=== PATIENT | male | born 1975 | race African-American/Black ===

== ENCOUNTER 2022-10-04 17:05 | Inpatient (IN) | payer SELFPAY ==
[2022-10-04 17:48] LABS: #Eosinphils 0.1 10x3/uL (0.0-0.5); #Monocytes 0.4 10x3/uL (0.0-1.1); %Basophils 0.7 % (0.0-2.0); %Eosinophils 1.6 % (0.0-6.0); %Lymphocytes 21.2 % (18.0-47.0); %Monocytes 7.3 % (0.0-10.0); Hemoglobin 11.2 g/dL (13.5-17.5); Mean Corpuscular Hemoglobin 28.1 pg (27.0-33.0); Mean Platelet Volume 10.1 fl (7.4-10.4); Platelet Count 367 10x3/uL (150-450); RBC Distribution Width 13.9 % (11.5-14.5); Red Blood Cell (RBC) Count 3.99 10x6/uL (4.32-5.72); White Blood Cell (WBC) Count 5.8 10x3/uL (3.5-10.5)
[2022-10-04 18:04] LABS: ALT (SGPT) 16 U/L (8-55); AST (SGOT) 26 U/L (5-34); Albumin 3.7 g/dL (3.5-5.0); Alkaline Phosphatase 61 U/L (40-110); Anion Gap 17 mmol/L (10-20); BUN (Urea Nitrogen) 38 mg/dL (8.9-20.6); Bilirubin, Total 0.6 mg/dL (0.2-1.2); Calc. Creatinine Clearance 0 mL/min (70-130); Calcium 9.2 mg/dL (7.8-10.44); Carbon Dioxide 21 mmol/L (22-29); Chloride 101 mmol/L (98-107); Estimated GFR 19; Glucose 152 mg/dL (70-105); Protein, Total 6.7 g/dL (6.0-8.3); Sodium 135 mmol/L (136-145)
[2022-10-04 18:23] LABS: CKMB 5.4 ng/mL (0-6.6)
[2022-10-04] MEDS ORDERED: Aspirin 325 MG TAB ONE (18:35)
[2022-10-04] MEDS ORDERED: niCARdipine 25 MG/10 ML SDV ONE (18:35)
[2022-10-04] MEDS ORDERED: Furosemide 40 MG/4 ML VIAL ONE (19:28)
[2022-10-04] MEDS ORDERED: Zolpidem Tartrate 5 MG TAB PO PRN (19:51)
[2022-10-04] MEDS ORDERED: Acetaminophen 325 MG TAB PO PRN (19:51)
[2022-10-04] MEDS ORDERED: Ondansetron PF 4 MG/2 ML Vial IVP PRN (19:51)
[2022-10-04] MEDS ORDERED: Senokot S 8.6-50 MG TAB PO PRN (19:51)
[2022-10-04] MEDS ORDERED: Calcium Carbonate 500 MG ChewTAB PO PRN (19:51)
[2022-10-04] MEDS ORDERED: Guaifenesin DM 100-10/5 ML UDCUP PO PRN (19:51)
[2022-10-04] MEDS ORDERED: niCARdipine 25 MG in Sodium Chloride 0.9% 250 ML 250 ML IVPB SCH (20:00)
[2022-10-04 20:12] LABS: Troponin I 2.298 ng/mL (< 0.028)
[2022-10-04] MEDS ORDERED: Heparin 5,000 UNITS/ML VIAL SC SCH (21:00)
[2022-10-04] MEDS ORDERED: Atorvastatin Calcium 10 MG TAB PO SCH (22:15)
[2022-10-04] MEDS ORDERED: Carvedilol 12.5 MG TAB PO SCH (22:15)
[2022-10-04] MEDS ORDERED: Nitroglycerin 2% Ointment 1 INCH/1 GM Packet TOP SCH (22:15)
[2022-10-04] MEDS ORDERED: hydrALAZINE 25 MG TAB PO SCH (22:15)
[2022-10-04 23:19] LABS: Bilirubin Neg (Negative); Blood, Urine 10 (Negative); Clarity Clear (Clear); Glucose, Urine (Dipstick) Normal (Negative); Ketone, Urine Negative (Negative); Leukocyte 100 (Negative); Nitrite Negative (Negative); Protein, Urine (Dipstick) 30 mg/dl (Neg-Trace); Urobilinogen Normal mg/dL (Less than 2); pH, Urine 6.5 (5.0-9.0)
[2022-10-04 23:26] LABS: Amphetamine Not Detected (NotDetected); Barbiturates Screen Not Detected (NotDetected); Benzodiazepine Screen Not Detected (NotDetected); Cocaine Metabolite Screen Not Detected (NotDetected); Methadone Not Detected (NotDetected); Methamphetamine Not Detected (NotDetected); Opiate Screen Not Detected (NotDetected); Oxycodone Screen Not Detected (NotDetected); Phencyclidine (PCP) Not Detected (NotDetected); THC/Cannabinoid Screen Not Detected (NotDetected); Tricyclic Screen Not Detected (NotDetected)
[2022-10-04 23:27] LABS: Bacteria/HPF None Seen HPF (None Seen); RBC/HPF 0-3 HPF (0-3); Squamous Epithelial 0-3 HPF (0-3); WBC/HPF 0-3 HPF (0-3)
[2022-10-05 03:48] LABS: #Eosinphils 0.1 10x3/uL (0.0-0.5); #Monocytes 0.3 10x3/uL (0.0-1.1); #Neutrophils 3.8 10x3/uL (1.5-8.4); %Basophils 0.6 % (0.0-2.0); %Eosinophils 1.4 % (0.0-6.0); %Lymphocytes 15.2 % (18.0-47.0); %Monocytes 6.9 % (0.0-10.0); %Neutrophils 75.7 % (40.0-75.0); Hemoglobin 10.7 g/dL (13.5-17.5); Mean Corpuscular HGB CONC 33.3 g/dL (32.0-36.0); Mean Platelet Volume 9.9 fl (7.4-10.4); Platelet Count 352 10x3/uL (150-450); RBC Distribution Width 14.1 % (11.5-14.5); Red Blood Cell (RBC) Count 3.82 10x6/uL (4.32-5.72)
[2022-10-05 03:52] LABS: Anion Gap 17 mmol/L (10-20); BUN (Urea Nitrogen) 36 mg/dL (8.9-20.6); CK (CPK) 64 U/L (30-200); Calc. Creatinine Clearance 32 mL/min (70-130); Calcium 9.1 mg/dL (7.8-10.44); Carbon Dioxide 21 mmol/L (22-29); Cardiac Risk 5.1 (Less than 4.5); Chloride 102 mmol/L (98-107); Cholesterol 149 mg/dl (< 200 Desired); Estimated GFR 20; Glucose 122 mg/dL (70-105); HDL Cholesterol 29 mg/dL (>60 Neg Risk); LDL Cholesterol, Calculated 103 mg/dL; Potassium 4.1 mmol/L (3.5-5.1); Sodium 136 mmol/L (136-145); Triglycerides 83 mg/dL (Less than 150)
[2022-10-05 04:19] LABS: CKMB 3.4 ng/mL (0-6.6)
[2022-10-05] MEDS ORDERED: Carvedilol 6.25 MG TAB PO SCH (08:00)
[2022-10-05] MEDS: Aspirin 81 mg Enteric Coated Tablet PO SCH (08:17)
[2022-10-05] MEDS ORDERED: hydrALAZINE 25 MG TAB PO SCH (09:00)
[2022-10-05] MEDS ORDERED: hydrALAZINE 20 MG/ML VIAL SLOW IVP PRN (09:41)
[2022-10-05] MEDS ORDERED: Furosemide 40 MG/4 ML VIAL SLOW IVP SCH (09:45)
[2022-10-05] MEDS: Furosemide 40 MG/4 ML VIAL SLOW IVP SCH (14:23)
[2022-10-05] MEDS: hydrALAZINE 25 MG TAB PO SCH ×2 (14:26→19:57)
[2022-10-05] MEDS: Carvedilol 25 MG TAB PO SCH (17:18)
[2022-10-05] MEDS: Atorvastatin Calcium 10 MG TAB PO SCH (19:57)
[2022-10-06] MEDS: Furosemide 40 MG/4 ML VIAL SLOW IVP SCH ×2 (05:16→14:09)
[2022-10-06 06:42] LABS: #Eosinphils 0.1 10x3/uL (0.0-0.5); #Monocytes 0.5 10x3/uL (0.0-1.1); #Neutrophils 3.5 10x3/uL (1.5-8.4); %Basophils 0.8 % (0.0-2.0); %Eosinophils 2.5 % (0.0-6.0); %Lymphocytes 18.4 % (18.0-47.0); %Monocytes 9.3 % (0.0-10.0); %Neutrophils 68.6 % (40.0-75.0); Hemoglobin 10.9 g/dL (13.5-17.5); Mean Corpuscular Hemoglobin 28.2 pg (27.0-33.0); Mean Corpuscular Volume 85.3 fl (81.2-95.1); Mean Platelet Volume 9.9 fl (7.4-10.4); Platelet Count 355 10x3/uL (150-450); RBC Distribution Width 14.4 % (11.5-14.5); Red Blood Cell (RBC) Count 3.87 10x6/uL (4.32-5.72); White Blood Cell (WBC) Count 5.2 10x3/uL (3.5-10.5)
[2022-10-06 06:54] LABS: Anion Gap 17 mmol/L (10-20); BUN (Urea Nitrogen) 34 mg/dL (8.9-20.6); Calc. Creatinine Clearance 31 mL/min (70-130); Calcium 8.9 mg/dL (7.8-10.44); Carbon Dioxide 22 mmol/L (22-29); Chloride 100 mmol/L (98-107); Estimated GFR 20; Glucose 128 mg/dL (70-105); Potassium 3.7 mmol/L (3.5-5.1); Sodium 135 mmol/L (136-145)
[2022-10-06] MEDS: Carvedilol 25 MG TAB PO SCH ×2 (08:19→17:21)
[2022-10-06] MEDS: hydrALAZINE 25 MG TAB PO SCH ×3 (08:19→20:42)
[2022-10-06] MEDS: Aspirin 81 mg Enteric Coated Tablet PO SCH (08:20)
[2022-10-06] MEDS: cloNIDine 0.1 MG TAB PO SCH ×2 (08:20→20:43)
[2022-10-06] MEDS ORDERED: Carvedilol 25 MG TAB PO SCH (09:45)
[2022-10-06] MEDS: Atorvastatin Calcium 10 MG TAB PO SCH (20:43)
[2022-10-07 02:52] VITALS: BMI 25.4
[2022-10-07 03:32] LABS: #Eosinphils 0.1 10x3/uL (0.0-0.5); #Monocytes 0.7 10x3/uL (0.0-1.1); #Neutrophils 3.4 10x3/uL (1.5-8.4); %Basophils 0.4 % (0.0-2.0); %Eosinophils 2.3 % (0.0-6.0); %Lymphocytes 20.5 % (18.0-47.0); %Monocytes 12.9 % (0.0-10.0); %Neutrophils 63.5 % (40.0-75.0); Hemoglobin 10.8 g/dL (13.5-17.5); Mean Corpuscular HGB CONC 33.3 g/dL (32.0-36.0); Mean Corpuscular Hemoglobin 28.2 pg (27.0-33.0); Mean Corpuscular Volume 84.6 fl (81.2-95.1); Mean Platelet Volume 10.6 fl (7.4-10.4); Platelet Count 345 10x3/uL (150-450); RBC Distribution Width 14.2 % (11.5-14.5); Red Blood Cell (RBC) Count 3.83 10x6/uL (4.32-5.72); White Blood Cell (WBC) Count 5.3 10x3/uL (3.5-10.5)
[2022-10-07 03:40] LABS: Anion Gap 16 mmol/L (10-20); BUN (Urea Nitrogen) 32 mg/dL (8.9-20.6); Calc. Creatinine Clearance 33 mL/min (70-130); Calcium 9.1 mg/dL (7.8-10.44); Carbon Dioxide 24 mmol/L (22-29); Chloride 98 mmol/L (98-107); Estimated GFR 21; Glucose 102 mg/dL (70-105); Potassium 3.5 mmol/L (3.5-5.1); Sodium 134 mmol/L (136-145)
[2022-10-07] MEDS: Furosemide 40 MG/4 ML VIAL SLOW IVP SCH (05:14)
[2022-10-07] MEDS: Aspirin 81 mg Enteric Coated Tablet PO SCH (08:44)
[2022-10-07] MEDS: hydrALAZINE 25 MG TAB PO SCH (08:44)
[2022-10-07] MEDS: Carvedilol 25 MG TAB PO SCH (08:44)
[2022-10-07] MEDS ORDERED: cloNIDine 0.1mg/24 Hour PATCH TD SCH (09:00)
[2022-10-07 09:03] VITALS: BP 130/86; TEMP 98.3
[2022-10-07] MEDS ORDERED: Enoxaparin 120 MG/0.8 ML SYRINGE SC SCH (21:00)
== END 2022-10-07 11:06 | disposition home or self-care (01) | DRG 280 ==
LOC: CSHERS 17:05 → CSHIMCU 22:01
PROVIDERS: ADMIT Student in an Organized Health Care Education/Training Program; ATTEND Internal Medicine
DX: I16.1 Hypertensive emergency (principal); I21.A1 Myocardial infarction type 2; I50.21 Acute systolic (congestive) heart failure; I42.0 Dilated cardiomyopathy; N17.9 Acute kidney failure, unspecified; N18.4 Chronic kidney disease, stage 4 (severe); F17.210 Nicotine dependence, cigarettes, uncomplicated; R73.9 Hyperglycemia, unspecified; D64.9 Anemia, unspecified; F12.19 Cannabis abuse with unspecified cannabis-induced disorder; I50.9 Heart failure, unspecified; I08.3 Combined rheumatic disorders of mitral, aortic and tricuspid valves; I13.0 Hypertensive heart and chronic kidney disease with heart failure and stage 1 through stage 4 chronic kidney disease, or unspecified chronic kidney disease; Z91.148 Patient's other noncompliance with medication regimen for other reason
CPT/HCPCS: 36415; 71045; 76770; 80048; 80053; 80061; 80306; 81001; 82088; 82550; 82553; 83036; 83880; 84244; 84443; 84484; 85025; 93005; 93306; 93975; 94760; 96365; 96366; 96375; J0360; J1650; J1940; J7050